=== PATIENT | male | born 1950 | race Two or more races ===

== ENCOUNTER 2018-12-20 12:19 | Inpatient (IN) | payer OTHER ==
[~2018-12-20] VITALS: Ht 149.9 cm; Wt 58.2 kg
--- NOTE | 2018-12-20 12:29 | NUR ---
HAL RN: PT [facility] FOR EPISTAXIS CALL, PT FOUND TO BE HYPERTENSIVE UPON ARRIVAL 190/130, TREATED W/ .1 CLONIDINE, 1 IN. NTG (NTG REMOVED UPON ARRIVAL) & 2 NTG SPRAYS.
[2018-12-20] MEDS ORDERED: PLEASE ENTER ALLERGIES MC SCH (13:00)
[2018-12-20] MEDS ORDERED: PLEASE ENTER HEIGHT AND WEIGHT MC SCH (13:00)
[2018-12-20] MEDS ORDERED: LIDOCAINE GEL 2%, 5ML TP ONE (13:00)
--- NOTE | 2018-12-20 13:17 | NUR ---
RN ASSUMED PRIMARY CARE OF PT: PER REPORT FROM PT WAS DOING "CHORES" AROUND THE HOUSE HE BENT OVER AND "BLOOD STARTED POURING OUT OF HIS RIGHT NOSE." STATED THAT HE STOPPED BLEEDING THEN STARTED TO BLEED AGAIN AND THATS WHEN SHE CALLED 911. PT HAS HAD A PRIOR HX OF HTN BUT HAS STOPPED TAKING HIS HTN MEDICATION. DR ZAVALA PLACED PACKING IN RIGHT NARE. RN PROVIDED MULTIPLE GAUZE PADS TO PT. PT CURRENTLY COUGHING UP BLOOD CLOTS. TACHYCARDIA NOTED. PER REPORT FROM MD PT "LOST A LOT OF BLOOD." CONTINUOUS VS MONITORING. AND DAUGHTER AT BEDSIDE. PT IS AWAKE ALERT AND ORIENTED. NO REPORTS OF PAIN OR DISCOMFORT AT THIS TIME. RN TO CONTINUE TO MONITOR.
[2018-12-20] MEDS ORDERED: METOCLOPRAMIDE 5 MG/ML, 2ML IVPush ONE (13:30)
--- NOTE | 2018-12-20 13:30 | NUR ---
RN VISUALIZED 500 CC OF BRIGHT RED VOMIT FROM PT. RN REPORTED FINDINGS TO ERMD. HAMLIN TO PUT IN INTERVENTIONS.
[2018-12-20] MEDS ORDERED: METOCLOPRAMIDE 5 MG/ML, 2ML ONE (13:32)
--- NOTE | 2018-12-20 13:41 | NUR ---
PT MEDICATED PER EMAR.
[2018-12-20 14:04] LABS: BASOPHILS # (AUTO) 0.04 x10^3/uL (0-0.1); BASOPHILS % (AUTO) 0 % (0-1); EOSINOPHILS # (AUTO) 0.17 x10^3/uL (0-0.4); EOSINOPHILS % (AUTO) 1 % (1-7); LYMPHOCYTES # (AUTO) 1.66 x10^3/uL (1-3.4); LYMPHOCYTES % (AUTO) 12 % (22-44); MD NO; MEAN CORPUSCULAR HGB CONC 33.1 g/dL (33.2-36.2); MEAN CORPUSCULAR VOLUME 93.5 fL (81-97); MEAN PLATELET VOLUME 8.5 fL (7.4-10.4); MONOCYTES # (AUTO) 0.94 x10^3/uL (0.2-0.8); MONOCYTES % (AUTO) 7 % (2-9); NEUTROPHILS # (AUTO) 11.07 x10^3/uL (1.8-6.8); NEUTROPHILS % (AUTO) 80 % (42-75); PLATELET COUNT 264 x10^3/uL (130-400); RED BLOOD COUNT 4.82 x10^6/uL (4.38-5.82); RED CELL DISTRIBUTION WIDTH 14.4 % (9.4-14.8)
[2018-12-20 14:11] LABS: INTERNATIONAL NORMALIZED RATIO 1.03 (0.93-1.1); PROTHROMBIN TIME 10.8 Seconds (9.6-11.5)
[2018-12-20 14:13] LABS: ALANINE AMINOTRANSFERASE 22 U/L (12-78); ALBUMIN 3.1 g/dL (3.4-5.0); ANION GAP 8 mmol/L (5-15); CALCIUM 8.8 mg/dL (8.5-10.1); CHLORIDE 104 mmol/L (98-107); CREATININE 1.23 mg/dL (0.7-1.3)
[2018-12-20 14:15] LABS: ALKALINE PHOSPHATASE 116 U/L (45-117); BILIRUBIN,TOTAL 0.4 mg/dL (0.2-1.0)
[2018-12-20] MEDS ORDERED: SODIUM CHLORIDE 0.9% 1,000ML IVBOLUS ONE (14:30)
[2018-12-20] MEDS ORDERED: ALBUTEROL/IPRATROPIUM 2.5MG/0.5MG, 3 ML NPPB ONE (14:30)
--- NOTE | 2018-12-20 14:30 | NUR ---
FLUIDS BEING ADMINISTERED PER EMAR.
[2018-12-20] MEDS ORDERED: ALBUTEROL/IPRATROPIUM 2.5MG/0.5MG, 3 ML ONE (14:51)
--- NOTE | 2018-12-20 14:58 | NUR ---
RT AT BEDSIDE.
--- NOTE | 2018-12-20 15:33 | NUR ---
PT WITH [facility]. DENIED BY [facility]
--- NOTE | 2018-12-20 15:38 | NUR ---
RN UPDATED PT AND FAMILY ON POC. PT TBAD. MED/TELE BED REQUESTED. PT RESTING COMFORTABLY ON GURNEY. NO NEEDS AT THIS TIME. RN TO CONTINUE TO MONITOR.
--- NOTE | 2018-12-20 17:10 | NUR ---
OK BY ERMD TO PROVIDE PT WITH SOME CRACKERS AND WATER. ERMD WOULD LIKE RN TO MONITOR PT WHILE EATING LOOKING FOR S/S OF ASPIRATION. RN PROVIDED PT WITH CRACKERS AND WATER. NO S/S OF ASPIRATION NOTED AT THIS TIME. AWAITING ROUNDING OF HOSPITALIST. AT BEDSIDE. RN TO CONTINUE TO MONITOR.
--- NOTE | 2018-12-20 17:29 | NUR ---
REPORT TO EDIN BHAKTA.
[2018-12-20 17:50] VITALS: BP 131/81
[2018-12-20] MEDS ORDERED: HYDROcodone/APAP 5/325 TABLET PO PRN (18:30)
[2018-12-20] MEDS ORDERED: ONDANSETRON ODT 4 MG PO PRN (18:30)
[2018-12-20] MEDS ORDERED: BISACODYL 10 MG SUPP PR PRN (18:30)
[2018-12-20] MEDS ORDERED: LABETALOL 5MG/ML, 20ML IVPush PRN (18:30)
[2018-12-20] MEDS ORDERED: PROMETHAZINE 25 MG/ML, 1ML IM PRN (18:30)
[2018-12-20] MEDS ORDERED: morphine SULFATE 10 MG/ML, 1ML IVPush PRN (18:30)
[2018-12-20] MEDS ORDERED: hydrALAzine 20 MG/ML, 1ML IVPush PRN (18:30)
[2018-12-20] MEDS ORDERED: DOCUSATE 100 MG CAPSULE PO PRN (18:30)
[2018-12-20] MEDS ORDERED: ACETAMINOPHEN 325 MG TABLET PO PRN (18:30)
[2018-12-20] MEDS ORDERED: POLYETHYLENE GLYCOL 17 GM PACKET PO PRN (18:30)
[2018-12-20] MEDS ORDERED: ONDANSETRON 2MG/ML, 2ML IVPush PRN (18:30)
[2018-12-20 18:41] LABS: FREE T4 (FREE THYROXINE) 1.12 ng/dL (0.76-1.46); THYROID STIMULATING HORMONE 8.26 mIU/L (0.358-3.740)
[2018-12-20 19:29] VITALS: BP 118/78
[2018-12-20 19:37] LABS: HEMOGLOBIN A1C 6.3 % (4.2-6.3)
[2018-12-20] MEDS: LOSARTAN 25MG TABLET PO SCH (19:58)
[2018-12-20] MEDS ORDERED: OMNIPAQUE 350 MG/ML, 75ML BOTTLE ONE (22:29)
[2018-12-21 02:46] VITALS: BP 96/63
[2018-12-21 06:15] LABS: CHLORIDE 109 mmol/L (98-107)
[2018-12-21 06:30] LABS: ALANINE AMINOTRANSFERASE 18 U/L (12-78); ALBUMIN 3.1 g/dL (3.4-5.0); ALKALINE PHOSPHATASE 74 U/L (45-117); ANION GAP 8 mmol/L (5-15); BILIRUBIN,TOTAL 0.4 mg/dL (0.2-1.0); CALCIUM 8.8 mg/dL (8.5-10.1); CHOLESTEROL, TOTAL 92 mg/dL (140-239); CREATININE 0.98 mg/dL (0.7-1.3); HDL CHOL % 50 % (26-37); HDL CHOLESTEROL (DIRECT) 46 mg/dL (40-60); TOTAL PROTEIN 6.7 g/dL (6.4-8.2); TRIGLYCERIDES 71 mg/dL (50-200); VLDL CHOLESTEROL 14 mg/dL (0-25)
[2018-12-21 06:31] LABS: LDL CHOLESTEROL,CALCULATED 32 mg/dL (54-169); LDL/HDL RATIO 0.7 (0.5-3.0)
[2018-12-21 06:53] LABS: TROPONIN I < 0.015 ng/mL (0.000-0.045)
[2018-12-21 07:17] LABS: BASOPHILS # (AUTO) 0.02 x10^3/uL (0-0.1); BASOPHILS % (AUTO) 0 % (0-1); EOSINOPHILS % (AUTO) 0 % (1-7); LYMPHOCYTES # (AUTO) 1.27 x10^3/uL (1-3.4); LYMPHOCYTES % (AUTO) 11 % (22-44); MD NO; MEAN CORPUSCULAR HGB CONC 32.6 g/dL (33.2-36.2); MEAN PLATELET VOLUME 8.9 fL (7.4-10.4); MONOCYTES # (AUTO) 0.92 x10^3/uL (0.2-0.8); MONOCYTES % (AUTO) 8 % (2-9); NEUTROPHILS # (AUTO) 8.97 x10^3/uL (1.8-6.8); NEUTROPHILS % (AUTO) 80 % (42-75); PLATELET COUNT 238 x10^3/uL (130-400); RED CELL DISTRIBUTION WIDTH 14.3 % (9.4-14.8)
[2018-12-21 07:55] VITALS: BP 125/78
[2018-12-21 09:25] LABS: TROPONIN I < 0.015 ng/mL (0.000-0.045)
[2018-12-21] MEDS ORDERED: REGADENOSON 0.4 MG/5 ML SYRINGE ONE (11:20)
[2018-12-21] MEDS: LOSARTAN 25MG TABLET PO SCH (13:11)
[2018-12-21 13:23] VITALS: BP 122/74
[2018-12-21] MEDS: CEFTRIAXONE PMX 2GM/50ML 50 ML IV SCH (13:55)
[2018-12-21] MEDS: AZITHROMYCIN 500 MG in SODIUM CHLORIDE 0.9% 250 ML IV SCH (15:03)
[2018-12-21 21:09] VITALS: BP 106/61
[2018-12-22 02:57] VITALS: BP 112/62
[2018-12-22 06:58] VITALS: BP 106/67
[2018-12-22] MEDS: LOSARTAN 25MG TABLET PO SCH (08:20)
[2018-12-22 12:37] VITALS: BP 127/79
[2018-12-22] MEDS: AZITHROMYCIN 500 MG in SODIUM CHLORIDE 0.9% 250 ML IV SCH (15:47)
[2018-12-22] MEDS ORDERED: CEFD300C37 PO (15:56)
[2018-12-22] MEDS ORDERED: AZIT500T5 PO (15:56)
[2018-12-22] MEDS: CEFTRIAXONE PMX 2GM/50ML 50 ML IV SCH (17:06)
== END 2018-12-22 19:00 | disposition home or self-care (01) | DRG 871 ==
LOC: ED 14:56 → EDIP 16:23 → 4WST 17:37
PROVIDERS: ADMIT Internal Medicine; ATTEND Internal Medicine
PROC: 2Y41X5Z Packing of Nasal Region using Packing Material (ICD-10-PCS; principal; 2018-12-20)
DX: A41.9 Sepsis, unspecified organism (principal); J18.9 Pneumonia, unspecified organism; J96.01 Acute respiratory failure with hypoxia; E44.0 Moderate protein-calorie malnutrition; R04.0 Epistaxis; J43.9 Emphysema, unspecified; I16.0 Hypertensive urgency; I10 Essential (primary) hypertension; Z80.8 Family history of malignant neoplasm of other organs or systems; Z87.891 Personal history of nicotine dependence; Z91.14 Patient's other noncompliance with medication regimen; Z98.1 Arthrodesis status; Z68.25 Body mass index [BMI] 25.0-25.9, adult
CPT/HCPCS: 36415; 71045; 71260; 78452; 80053; 80061; 83036; 83735; 84439; 84443; 84484; 85025; 85610; 85730; 86850; 86900; 93005; 93017; 93306; 94640; 96361; 96374; 99291; G0378; J0456; J0696; J2785; Q9967; A9502; C9898; J2765; J7030; J7050; J7512